=== PATIENT | female | born 1980 | race Caucasian/White ===

== ENCOUNTER 2020-11-18 07:57 | Emergency (ER) | payer BC ==
[~2020-11-18] VITALS: Ht 157.5 cm; Wt 68.0 kg
[2020-11-18] MEDS ORDERED: ZOLOFT20 MG/1 ML PO (08:20)
[2020-11-18] MEDS ORDERED: CEPHALEXIN500 MG PO (13:07)
[2020-11-18] MEDS ORDERED: SILVADENE20 GM TOP (13:07)
== END 2020-11-18 13:53 | disposition home or self-care (01) ==
LOC: ER 07:57
DX: L55.0 Sunburn of first degree (principal); L56.8 Other specified acute skin changes due to ultraviolet radiation; X32.XXXA Exposure to sunlight, initial encounter; Y93.89 Activity, other specified; Y92.832 Beach as the place of occurrence of the external cause; Y99.8 Other external cause status